=== PATIENT | female | born 1990 | race Caucasian/White ===

== ENCOUNTER 2018-09-05 05:51 | Observation (INO) | payer OTHER ==
[~2018-09-05 05:51] MED LIST: ACETAMINOPHEN 500 MG TAB PO ONE; LIDOCAINE 1% 2 ML INJ ID PRN; LR 1,000 ML IV ONE; PHENAZOPYRIDINE HCL 200 MG TAB PO ONE; ceFAZolin 2 GM/DEXTROSE 100 ML IV ONE
--- NOTE | 2018-09-05 06:58 | PDANEPAE ---
ANE History of Present Illness endometriosis, here for robotic removal of lesions ANE Past Medical History - Cardiovascular History Hx Hypertension: No Hx Arrhythmias: No Hx Chest Pain: No Hx Coronary Artery / Peripheral Vascular Disease: No Hx CHF / Valvular Disease: No Hx Palpitations: No Cardiovascular History Comment: gestational HTN - Pulmonary History Hx COPD: No Hx Asthma/Reactive Airway Disease: No Hx Recent Upper Respiratory Infection: No Hx Oxygen in Use at Home: No Hx Sleep Apnea: No Sleep Apnea Screening Result - Last Documented: Negative - Neurologic History Hx Cerebrovascular Accident: No Hx Seizures: No Hx Dementia: No - Endocrine History Hx Diabetes: No - Renal History Hx Renal Disorders: No - Liver History Hx Hepatic Disorders: No - Neurological & Psychiatric Hx Hx Neurological and Psychiatric Disorders: Yes Neurological / Psychiatric History Comment: raynauds. depression/anxiety - Cancer History Hx Cancer: No - Congenital Disorder History Hx Congenital Disorders: No - GI History Hx Gastrointestinal Disorders: No - Other Health History Other Health History: endometriosis. eczma upper arms - Chronic Pain History Chronic Pain: No - Surgical History Prior Surgeries: none in last 5 yrs ANE Review of Systems Review of Systems: - Exercise capacity METS (RN): 4 METS ANE Patient History - Allergies Allergies/Adverse Reactions: gabapentin Allergy (Verified 08/22/18 11:17) Other-Enter Comments - Home Medications Home Medications: Ativan 08/22/18 [Last Taken 08/05/18] Cannabidiol (Cbd) Extract 08/22/18 [Last Taken 2 Weeks Ago ~08/22/18] Cymbalta 08/22/18 [Last Taken 09/05/18 05:00] - NPO status NPO Since - Liquids (Date): 09/05/18 NPO Since - Liquids (Time): 05:00 NPO Since - Solids (Date): 09/04/18 NPO Since - Solids (Time): 20:30 - Smoking Hx Smoking Status: Never smoked - Family Anes Hx Family Hx Anesthesia Complications: mother wakes up agitated ANE Labs/Vital Signs - Vital Signs Blood Pressure: 129/89 Heart Rate: 91 Respiratory Rate: 18 O2 Sat (%): 99 Height: 160.02 cm Weight: 74.843 kg ANE Physical Exam - Airway Neck exam: FROM Mallampati Score: Class 1 Mouth exam: normal dental/mouth exam - Pulmonary Pulmonary: no respiratory distress, no rales or rhonchi - Cardiovascular Cardiovascular: regular rate and rhythym, no murmur, rub, or gallop - ASA Status ASA Status: II ANE Anesthesia Plan Anesthesia Plan: general endotracheal anesthesia Total IV Anesthesia: No
[2018-09-05] MEDS ORDERED: MIDAZOLAM 2 MG/2 ML VIAL IVP ONE (07:06)
[2018-09-05] MEDS ORDERED: BUPIVACAINE/EPI 0.5% 30 ML SDV ONE (07:07)
[2018-09-05] MEDS ORDERED: MIDAZOLAM 2 MG/2 ML VIAL ONE (07:09)
--- NOTE | 2018-09-05 07:10 | PDHPUP ---
History & Physical Update H&P update statement: This history and physical update is based on an assessment of the patient which was completed after admission or registration (within 24 hours), but prior to the surgery/procedure. H&P update: H&P reviewed & patient examined, no change in patient's condition since H&P completed
[2018-09-05] MEDS ORDERED: PROPOFOL 200 MG/20 ML VIAL ONE ×3 (07:13→09:04)
[2018-09-05] MEDS ORDERED: fentaNYL 100 MCG/2 ML INJ ONE ×3 (07:13→09:39)
[2018-09-05] MEDS ORDERED: PROMETHAZINE HCL 25 MG/ML INJ IVP PRN ×2 (08:44→09:28)
[2018-09-05] MEDS ORDERED: ALBUTEROL 3 ML DEYVIAL IH PRN (08:44)
[2018-09-05] MEDS ORDERED: LR 500 ML IV PRN (08:44)
[2018-09-05] MEDS ORDERED: oxyCODONE IR 5 MG TAB PO PRN (08:44)
[2018-09-05] MEDS ORDERED: MEPERIDINE 25 MG/0.5 ML AMP IVP PRN (08:44)
[2018-09-05] MEDS ORDERED: NALOXONE HCL 0.4 MG/ML INJ IVP PRN (08:44)
[2018-09-05] MEDS ORDERED: HYDROmorphONE/DILAUDID 2 MG/ML INJ ONE ×2 (09:05→10:02)
[2018-09-05] MEDS ORDERED: DEXAMETHASONE 4 MG/ML VIAL ONE (09:18)
[2018-09-05] MEDS ORDERED: SUGAMMADEX SODIUM 200 MG/2 ML VIAL IVP ONE (09:18)
[2018-09-05] MEDS ORDERED: KETOROLAC 30 MG/1 ML SDV ONE (09:18)
[2018-09-05] MEDS ORDERED: ONDANSETRON 4 MG/2 ML VIAL ONE (09:18)
[2018-09-05] MEDS ORDERED: ROCURONIUM 100 MG/10 ML VIAL ONE (09:18)
[2018-09-05] MEDS ORDERED: HYDROCODONE/APAP 5/325 TAB PO PRN (09:28)
--- NOTE | 2018-09-05 09:28 | POSTOPPROG ---
Post Op Note Date of Operation: 09/05/18 Surgeon: Sean Preston Personnel And Payroll Technician: Cindy Rose Anesthesia: GET(General Endotracheal) Pre-op Diagnosis: Endometriosis Post-op Diagnosis: Same Procedure: Robotic hyst/RSO, excise endo, ureterolysis, cysto Findings: Endo, ureters function at end of case Inf/Abcess present in the surg proc area at time of surgery?: No EBL: Minimal Complications: None
[2018-09-05] MEDS ORDERED: ONDANSETRON 4 MG/2 ML VIAL IVP PRN (09:29)
[2018-09-05] MEDS ORDERED: ONDANSETRON DISINTEGRATING 4 MG TAB PO PRN (09:29)
[2018-09-05] MEDS ORDERED: LR 1,000 ML IV SCH (09:30)
[2018-09-05] MEDS ORDERED: MEPERIDINE 25 MG/0.5 ML AMP ONE (09:41)
[2018-09-05] MEDS ORDERED: DIAZEPAM 5 MG/ML 1 ML SYR ONE (09:47)
[2018-09-05] MEDS: DIAZEPAM 5 MG/ML 1 ML SYR IVP PRN ×2 (09:49→10:09)
[2018-09-05] MEDS: fentaNYL 100 MCG/2 ML INJ IVP PRN ×2 (09:57→10:27)
[2018-09-05] MEDS: HYDROmorphONE/DILAUDID 2 MG/ML INJ IVP PRN ×3 (10:03→10:34)
--- NOTE | 2018-09-05 10:27 | GOP ---
[f rep st] OPERATIVE REPORT DATE OF OPERATION: 09/05/2018 SURGEON: Sean Preston MD VULCANIZER OPERATOR: Cindy Rose CFA ANESTHESIA: General. PREOPERATIVE DIAGNOSIS: 1. Endometriosis. 2. Dysmenorrhea. 3. Dyschezia. 4. Second-degree uterine prolapse. 5. Urinary frequency and urgency. 6. Midcycle pain. POSTOPERATIVE DIAGNOSIS: 1. Endometriosis. 2. Dysmenorrhea. 3. Dyschezia. 4. Second-degree uterine prolapse. 5. Urinary frequency and urgency. 6. Midcycle pain. PROCEDURE PERFORMED: 1. Robotic-assisted total laparoscopic hysterectomy, bilateral salpingectomy, right oophorectomy. 2. Excision of endometriosis in anterior and posterior cul-de-sacs and bilateral pelvic side wong. 3. Bilateral ureterolysis. 4. Excision of rectal lesion. 5. Left ovariopexy. 6. Uterosacral ligament colpopexy. 7. Cystoscopy. FINDINGS: SPECIMENS: 1. Uterus, bilateral tubes, and right ovary. 2. Pelvic peritoneum with endometriosis. 1. Rectal lesion. 3. ESTIMATED BLOOD LOSS: Scant. DESCRIPTION OF PROCEDURE: The patient was taken to the operating room where she was identified. Gen eral anesthesia was administered and found to be adequate. She was placed in the lithotomy position and prepared and draped in normal sterile fashion. A VCare uterine manipulator was placed into the e ndometrial cavity and sutured to the cervix. A Rodriguez catheter was then placed. An 8 mm infraumbilical incision was made with a scalpel. The Veress needle with CO2 gas flowing was advanced into the peritoneal cavity. The abdomen was then insufflated with carbon dioxide gas. The 8 mm trocar, followed by the laparoscope were then inserted. The upper abdomen was unremarkable. Th ere was no evidence of endometriosis on either diaphragm, liver, gallbladder, or stomach. Two latera l ports placed in the right, 1 on the left under direct visualization. She then was placed in [place] position and the da Elyssa robot docked on the left side. The instruments were then brought i nto the abdominal cavity under direct visualization. The patient had endometriosis in the anterior and posterior cul-de-sac, bilateral pelvic sidewalls ov erlying both ureters, as well as along the uterosacral ligament. There was a lesion on the distal re ctum just before the peritoneal reflection. The rectal lesion was excised. This extended approximat jolene 50% through the muscularis. The muscularis and serosa was reapproximated with a [id number] suture of 3 O Vicryl. The posterior cul-de-sac peritoneum from the distal rectum up to the cervix an d laterally to the uterosacral ligaments was then completely excised. A bilateral ureterolysis was r equired given the endometriosis overlying both ureters. The peritoneum at the pelvic brims was incis ed. The ureters were gently dissected free and lateralized off the overlying peritoneum from the pel anu brim down to the bladder. Once was accomplished, the entire pelvic sidewall peritoneum was compl etely excised. The left fallopian tube was along the mesosalpinx. The utero-ovarian ligament, followed by the round ligament were then cauterized and transected. The anterior leaf of the broad ligament was then incised over the left uterine vessels and across the cervix. The bladder was gently dissected off the cervix and upper vagina. The left uterine vasculature was then cauterized and transected. T he right round ligament was divided. The anterior leaf of the broad ligament was then incised toward the bifurcation of the right common iliac vessels. A window was created in the posterior leaf to sk eletonize the infundibulopelvic vessels. They were then cauterized and transected. The right uterin e vasculature was then cauterized and transected. A circumferential colpotomy incision was then made with the hot delia and all specimens were removed through the vagina. The vaginal cuff was closed with a running suture of 0 V-Loc 180. A bilateral uterosacral ligament colpopexy was performed by attaching the lateral aspects of the vagi nal cuff to the ipsilateral uterosacral ligaments near the coccygeal-sacrospinous ligament complexes. A left ovariopexy was then performed by attaching the left ovary to the left round ligament near th e internal inguinal ring with 3-0 Vicryl suture. The anterior cul-de-sac peritoneum was then excised . All specimens were sent to Pathology. The pelvis was copiously irrigated with sterile saline, and hemostasis was present. The robot was then undocked. The skin was closed with. 4-[address] janusz-Strips. Cystoscopy was then performed. Both ureters had vigorous jets of urine. There was no obvious pathol ogy seen causing the patient's urinary frequency and urgency, other than her peritoneal endometriosis . No bladder, nor urethral injury seen. Anesthesia was reversed and patient taken the PACU awake, i n stable condition. COMPLICATIONS: None. DISPOSITION: Patient stable to PACU. /[id number]/MODL
[2018-09-05] MEDS ORDERED: HYDROCODONE/APAP 5/325 TAB ONE (10:43)
[2018-09-05] MEDS: HYDROmorphONE/DILAUDID 1 MG/ML INJ IVP PRN (12:18)
[2018-09-05] MEDS: DOCUSATE SODIUM 100 MG CAP PO SCH ×2 (12:18→21:22)
[2018-09-05] MEDS: OXYCODONE/APAP 5/325 TAB PO PRN ×3 (13:43→21:25)
[2018-09-05] MEDS: KETOROLAC 30 MG/1 ML SDV IVP SCH ×2 (15:10→21:23)
[2018-09-05] MEDS: SIMETHICONE 80 MG TAB CHEW PO SCH ×3 (15:36→23:38)
[2018-09-05] MEDS ORDERED: DOCUSATE SODIUM 100 MG CAP PO SCH (21:00)
[2018-09-06] MEDS: OXYCODONE/APAP 5/325 TAB PO PRN ×3 (01:48→12:43)
[2018-09-06 02:10] LABS: PLATELET COUNT 326 10^3/uL (150-400)
[2018-09-06] MEDS: KETOROLAC 30 MG/1 ML SDV IVP SCH ×2 (03:35→11:17)
[2018-09-06] MEDS: DOCUSATE SODIUM 100 MG CAP PO SCH (07:25)
[2018-09-06] MEDS: HYDROmorphONE/DILAUDID 1 MG/ML INJ IVP PRN (07:25)
[2018-09-06 07:35] VITALS: BP 128/85
[2018-09-06] MEDS ORDERED: KETOROLAC 30 MG/1 ML SDV IVP SCH (10:00)
[2018-09-06] MEDS: SIMETHICONE 80 MG TAB CHEW PO SCH (12:42)
--- NOTE | 2018-09-07 10:19 | GDS ---
[f rep st] DISCHARGE SUMMARY DISCHARGE DIAGNOSES: 1. Endometriosis. 2. Pelvic pain. PROCEDURES: 1. Robotic-assisted total laparoscopic hysterectomy, bilateral salpingectomy, right oophorectomy. 2. Excision of endometriosis. 3. Bilateral ureterolysis. 4. Excision of rectal lesion. 5. Left ovariopexy. 6. Uterosacral ligament colpopexy. 7. Cystoscopy. HISTORY: The patient has a long history of pelvic pain, secondary to endometriosis. She was taken t o the operating room on 09/05/2018, where she underwent the above-mentioned procedures without compli cations. Her postoperative course was uneventful. The morning after surgery, she was ambulating, voiding, and tolerating a general diet. She was discharged home on Percocet and ibuprofen for pain. She is to leah morin up in the office 2 weeks after discharge. /[id number]/MODL
--- NOTE | 2018-09-10 14:40 | POSTANESTH ---
Post Anesthetic Evaluation Cardiovascular Status: Normal, Stable Respiratory Status: Normal, Stable Level of Consciousness/Mental Status: Can Participate in Eval, Mildly Sleepy, Arousable Pain Control: Adequate, Prn Tx Ordered Nausea/Vomiting Control: Adequate, Prn Tx Ordered Complications Possibly Related to Anesthesia: None Noted
== END 2018-09-06 12:52 | disposition home or self-care (01) ==
LOC: FSGY 05:51 → F3E 09:29 → FOB 11:14
PROVIDERS: ADMIT Obstetrics & Gynecology; ATTEND Obstetrics & Gynecology
DX: N80.3 Endometriosis of pelvic peritoneum (principal); N81.2 Incomplete uterovaginal prolapse; R10.2 Pelvic and perineal pain; N94.10 Unspecified dyspareunia; K59.00 Constipation, unspecified
CPT/HCPCS: 57425; 58571; G0378; J0690; J1100; J1170; J1885; J2175; J2250; J2405; J2704; J3010; J3360

== ENCOUNTER 2018-09-22 23:25 | Emergency (ER) | payer OTHER ==
[2018-09-23] MEDS ORDERED: NS 1,000 ML IV ONE (00:14)
[2018-09-23] MEDS ORDERED: HYDROmorphONE/DILAUDID 2 MG/ML INJ IVP ONE (00:14)
--- NOTE | 2018-09-23 00:28 | EDPHY ---
H & P Stated Complaint: RLQ PAIN S/P SURGERY 09/05 LAP AND HIST Time Seen by Provider: 09/22/18 23:35 HPI/ROS: HPI The patient presents with right lower and right flank abdominal pain for the last 1 day which is gotten progressively worse. The patient had a laparoscopic hysterectomy performed for endometriosis on September [address] Preston. Three days ago, she had some abdominal pain and vaginal bleeding which was transient and improved. Yesterday, she thinks she over did it by doing too much physical activity when interacting with her kids. Last night she had severe pain which continued throughout the day today which she describes as a dull constant ache worse with movement. She has not had any nausea, vomiting, constipation, diarrhea. She has not had a fever.. She has pain when she urinates. REVIEW OF SYSTEMS 10 systems were reviewed and negative with the exception of the elements mentioned in the history of present illness. PMHx: Endometriosis, recent laparoscopic hysterectomy Soc Hx: Here with her , has 2 small children PHYSICAL General Appearance: Alert, no distress Eyes: Pupils equal and round no pallor or injection ENT, Mouth: Mucous membranes moist Respiratory: There are no retractions, lungs are clear to auscultation Cardiovascular: Regular rate and rhythm Gastrointestinal: Surgical scars without any surrounding erythema, warmth, edema Abdomen is soft and tender in right lower quadrant and right flank, no masses, bowel sounds normal Neurological: A&O, moves all extremities Skin: Warm and dry, no rashes Musculoskeletal: Neck is supple non tender Extremities: symmetrical, full range of motion Psychiatric: Patient is oriented X 3, there is no agitation Source: Patient Exam Limitations: No limitations - Personal History LMP (Females 10-55): Hysterectomy Current Tetanus/Diphtheria Vaccine: Yes Current Tetanus Diphtheria and Acellular Pertussis (TDAP): Yes - Medical/Surgical History Hx Asthma: No Hx Chronic Respiratory Disease: No Hx Diabetes: No Hx Cardiac Disease: No Hx Renal Disease: No Hx Cirrhosis: No Hx Alcoholism: No Hx HIV/AIDS: No Hx Splenectomy or Spleen Trauma: No Other PMH: hx vocal chord disfunction,hx migraine, endometrosis since age 10, 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 - Social History Smoking Status: Never smoked Constitutional: Initial Vital Signs Temperature (C) 36.7 C 09/22/18 23:26 Heart Rate 103 H 09/22/18 23:26 Respiratory Rate 18 09/22/18 23:26 Blood Pressure 126/95 H 09/22/18 23:26 O2 Sat (%) 96 09/22/18 23:26 O2 Delivery Mode Room Air Allergies/Adverse Reactions: gabapentin Allergy (Verified 09/22/18 23:29) Other-Enter Comments Home Medications: Medication Instructions Recorded DULoxetine [Cymbalta 60 MG (*)] 60 mg PO DAILY 08/22/18 Acetaminophen [Tylenol 325mg (*)] 325 mg PO Q6 PRN 09/05/18 DULoxetine [Cymbalta 30 MG (*)] 30 mg PO HS 09/05/18 Herbals/Supplements -Info Only 1 ea PO DAILY 09/05/18 traMADol [Ultram 50 mg (*)] 50 mg PO Q4 PRN 09/05/18 oxyCODONE/APAP 5/325 [Percocet 1 - 2 tab PO Q4HRS PRN #30 tab 09/06/18 5/325 (*)] DULoxetine [Cymbalta 60 MG (*)] 90 mg PO DAILY 09/22/18 Medical Decision Making - Diagnostics Imaging Results: CT abdomen pelvis with IV contrast demonstrates mild edema in the pelvis related to recent hysterectomy likely, small umbilical hernia, fat containing with mild stranding, large volume of retained stool likely related to constipation, interpreted by direct Radiology. Differential Diagnosis: 27-year-old female with history of endometriosis who is 2.5 weeks status post laparoscopic hysterectomy by Dr. Preston presents with right lower quadrant abdominal pain and right flank pain for the last 1 day. Differential diagnosis includes muscle strain, constipation, opiate withdrawal, appendicitis, ureterolithiasis, pyelonephritis. In the emergency department, patient was given IV fluids and Dilaudid with improvement in her symptoms. Labs were unremarkable. UA showed possible UTI versus contamination, thus urine culture was sent and I will not treat until culture returns. CT scan demonstrates mild edema in the pelvis which I attribute to her recent hysterectomy. There is also small umbilical hernia, however this is not where her pain is located. CT scan also reveals large amount of retained stool which I think could be the cause of her symptoms. Plan for treatment with MiraLax and magnesium citrate. As the patient will be discharged from the ER. - Data Points Laboratory Results: Laboratory Results 09/23/18 00:00 09/23/18 00:00 09/23/18 09/23/18 09/23/18 00:20 00:00 00:00 WBC 7.50 10^3/uL 10^3/uL (3.80-9.50) RBC 4.24 10^6/uL 10^6/uL (4.18-5.33) Hgb 12.3 g/dL L g/dL (12.6-16.3) Hct 37.5 % L % (38.0-47.0) MCV 88.4 fL fL (81.5-99.8) MCH 29.0 pg pg (27.9-34.1) MCHC 32.8 g/dL g/dL (32.4-36.7) RDW 12.6 % % (11.5-15.2) Plt Count 465 10^3/uL H 10^3/uL (150-400) MPV 9.1 fL fL (8.7-11.7) Neut % (Auto) 49.4 % % (39.3-74.2) Lymph % (Auto) 39.7 % % (15.0-45.0) Anderson % (Auto) 8.0 % % (4.5-13.0) Eos % (Auto) 1.9 % % (0.6-7.6) Baso % (Auto) 0.7 % % (0.3-1.7) Nucleat RBC Rel Count 0.0 % % (0.0-0.2) Absolute Neuts (auto) 3.71 10^3/uL 10^3/uL (1.70-6.50) Absolute Lymphs (auto) 2.98 10^3/uL 10^3/uL (1.00-3.00) Absolute Monos (auto) 0.60 10^3/uL 10^3/uL (0.30-0.80) Absolute Eos (auto) 0.14 10^3/uL 10^3/uL (0.03-0.40) Absolute Basos (auto) 0.05 10^3/uL 10^3/uL (0.02-0.10) Absolute Nucleated RBC 0.00 10^3/uL 10^3/uL (0-0.01) Immature Gran % 0.3 % % (0.0-1.1) Immature Gran # 0.02 10^3/uL 10^3/uL (0.00-0.10) Sodium 142 mEq/L mEq/L (135-145) Potassium 4.0 mEq/L mEq/L (3.5-5.2) Chloride 108 mEq/L mEq/L (97-110) Carbon Dioxide 24 mEq/l mEq/l (22-31) Anion Gap 10 mEq/L mEq/L (6-14) BUN 18 mg/dL mg/dL (7-23) Creatinine 0.9 mg/dL mg/dL (0.6-1.0) Estimated GFR > 60 Glucose 102 mg/dL H mg/dL (70-100) Calcium 9.6 mg/dL mg/dL (8.5-10.4) Total Bilirubin 0.2 mg/dL mg/dL (0.1-1.4) AST 18 IU/L IU/L (14-46) ALT 29 IU/L IU/L (9-52) Alkaline Phosphatase 162 IU/L H IU/L (38-126) Total Protein 7.7 g/dL g/dL (6.3-8.2) Albumin 4.6 g/dL g/dL (3.5-5.0) Urine Color YELLOW Urine Appearance HAZY Urine pH 5.0 (5.0-7.5) Ur Specific [place] 1.015 (1.002-1.030) Urine Protein NEGATIVE (NEGATIVE) Urine Ketones NEGATIVE (NEGATIVE) Urine Blood 1+ H (NEGATIVE) Urine Nitrate NEGATIVE (NEGATIVE) Urine Bilirubin NEGATIVE (NEGATIVE) Urine Urobilinogen NEGATIVE EU EU (0.2-1.0) Ur Leukocyte Esterase 1+ H (NEGATIVE) Urine RBC 1-3 /hpf /hpf (0-3) Urine WBC 10-15 /hpf H /hpf (0-3) Ur Epithelial Cells TRACE /lpf /lpf (NONE-1+) Urine Mucus TRACE /lpf /lpf (NONE-1+) Urine Glucose NEGATIVE (NEGATIVE) Medications Given: Discontinued Medications Hydromorphone HCl (Dilaudid) 0.5 mg IVP EDNOW ONE Stop: 09/23/18 00:15 Last Admin: 09/23/18 00:18 Dose: 0.5 mg Sodium Chloride (Ns) 1,000 mls @ 0 mls/hr IV EDNOW ONE; Wide Open PRN Reason: Protocol Stop: 09/23/18 00:15 Last Admin: 09/23/18 00:18 Dose: 1,000 mls Departure - Departure Disposition: Home, Routine, Self-Care Clinical Impression: History of hysterectomy Abdominal pain Qualifiers: Abdominal location: generalized Qualified Code(s): R10.84 - Generalized abdominal pain Constipation Qualifiers: Constipation type: unspecified constipation type Qualified Code(s): K59.00 - Constipation, unspecified Condition: Good Instructions: Constipation (DC) Additional Instructions: I recommend you take MiraLax 17 g once daily for the next 1 week. You may want to try magnesium citrate, 1 bottle tomorrow. Return to the ER if your worse in any way. Referrals: EDDIE BRUNO [Primary Care Provider] - As per Instructions Sean Preston MD [Medical Doctor] - As per Instructions
[2018-09-23 00:44] LABS: PLATELET COUNT 465 10^3/uL (150-400)
[2018-09-23] MEDS ORDERED: IOPAMIDOL (ISOVUE-300) 100 ML BTL ONE (00:49)
[2018-09-23 01:49] VITALS: BP 121/81
== END 2018-09-23 01:55 | disposition home or self-care (01) ==
DX: R10.31 Right lower quadrant pain (principal); K59.00 Constipation, unspecified; E86.9 Volume depletion, unspecified; Z98.890 Other specified postprocedural states; Z90.710 Acquired absence of both cervix and uterus
CPT/HCPCS: 96374; J1170; Q9967